=== PATIENT | female | born 1950 | race Caucasian/White ===

== ENCOUNTER 2018-10-30 09:15 | Inpatient (IN) ==
[2018-10-30] MEDS ORDERED: PANTOPRAZOLE SODIUM 40 MG/100 ML PIGGYBACK IV ONE (09:20)
[2018-10-30] MEDS ORDERED: NORMAL SALINE 1,000 ML IV ONE ×2 (09:24→09:25)
--- NOTE | 2018-10-30 09:34 | ERNOTE ---
Medical Problem HPI - General Chief Complaint: Nausea/Vomiting Time Seen by Provider: 10/30/18 09:15 Source: patient, family Exam Limitations: no limitations - Immun/Allergies/Home Medications Immunizations: IMMUNIZATION HX Immunizations Up to Date Yes Allergies/Adverse Reactions: Allergies Sulfa (Sulfonamide Antibiotics) Allergy (Intermediate, Verified 10/18/18 13:24) can't breath Penicillins Allergy (Verified 10/30/18 12:13) Rash Home Medications: HOME MEDICATIONS alprazolam 0.5 mg tablet 0.5 mg PO HS PRN tab 09/28/18 [Last Taken Unknown] famotidine 20 mg tablet 20 mg PO DAILY 09/28/18 [Last Taken Unknown] fluticasone 50 mcg/actuation nasal spray,suspension 1 spray CARRIE BID PRN 09/28/18 [Last Taken Unknown] levothyroxine 75 mcg capsule 75 mcg PO DAILY 09/28/18 [Last Taken Unknown] primidone 250 mg tablet 375 mg PO HS tab 09/28/18 [Last Taken Unknown] hydrocodone 5 mg-acetaminophen 325 mg tablet 1 tab PO DAILY PRN #30 tab 09/29/18 [Last Taken Unknown] fluoxetine 10 mg capsule 10 mg PO DAILY #30 cap 10/11/18 [Last Taken Unknown] - History of Present History Narrative: Patient states that she has had URI symptoms for about two months and has not felt well. Yesterday evening she started to vomit black liquid, per ab out x10, at times bloody, has had black formed stool, has a history of ulcers, had EGD a few years ago She denies any abdominal pain at this point Review of Systems - Review of Systems Constitutional: Present: recent illness, malaise. Absent: fever ENT: Present: nose congestion. Absent: sore throat Respiratory: Present: cough. Absent: shortness of breath Cardiology: Absent: chest pain Gastrointestinal/Abdominal: Present: See HPI, nausea, vomiting. Absent: diarrhea, abdominal pain Genitourinary: Present: no symptoms reported Musculoskeletal: Present: back pain - chronic Neurological: Absent: headache Medical History (Updated 10/18/18 @ 15:54 by Kevin Bonilla MD) Encounter for Medicare annual wellness exam (Acute) Major depressive disorder with current active episode (Acute) BPPV (benign paroxysmal positional vertigo) (Acute) Welcome to Medicare preventive visit (Acute) Chronic lower back pain (Chronic) Etiology of back pain has not been previously evaluated. Anxiety (Chronic) Well controlled with xanax Screening for depression (Chronic) PHQ 9: 15 concerning for Major Depressive Disorder. is at bedside and explains she has been through a lot within the last 2 years, including loss of sibling and father and moving from a different state to [place]. Patient appears she is having a hard time adjusting. Encounter to establish care with new doctor (Acute) Chronic pain Constipation Hypothyroidism Seasonal allergies Seizure disorder Surgical History: Surgical History (Updated 09/28/18 @ 15:42 by Brie Chadwick RN) History of D&C History of section History of tonsillectomy History of tubal ligation Family History: Family History (Updated 09/29/18 @ 09:54 by Brie Chadwick RN) Mother Kidney disease Social History: Preferred Language Hungarian Smoking Status Never smoker Alcohol Use none Drug Use none (Last Updated 10/19/18 @ 12:42 by Kevin Bonilla MD) No Social History Section defined Physical Exam - Physical Exam General Appearance: Present: wd/wn, alert, no apparent distress, other - fatigued Head Exam: Present: normal inspection Eye Exam: Conjunctivae pale: bilateral Ears, Nose, Throat: Present: other - black in mouth Respiratory: Present: no respiratory distress, no accessory muscle use, chest nontender, lungs clear, decreased breath sounds Cardiovascular/Chest: Present: regular rate, rhythm, no murmur Gastrointestinal/Abdominal: Present: normal bowel sounds, nondistended, soft, tenderness - suprapubic Extremity Exam: Present: no edema Neurological Exam: Present: alert, oriented, normal mood/affect Skin Exam: Present: warm/dry, pallor - ! Progress - Results and Orders Patient's Lab Results:: I have reviewed the patient's lab results. - Vital Signs Patient's Vital Signs:: I have reviewed the patient's vital signs. Vital Signs: Vital Signs 10/30/18 09:15 10/30/18 09:22 Temperature 36.2 C Pulse Rate 84 87 Respiratory Rate 18 12 Blood Pressure 133/88 133/88 O2 Sat by Pulse Oximetry 89 L 99 - X-Ray X-Ray #1 X-Ray: abdomen - non specifc bowel gas pattern Interpretation: Reviewed by me - Progress/Reassessment Chief Complaint: Nausea/Vomiting Progress Note-Subjective: 10/30/18 10:[address] Woods, admit to medicine, EGD later today 10/30/18 11:01 discussed with jhony Mendieta to admit to hospital for upper GI bleed Departure Clinical Impression: Upper GI bleed - Departure Disposition: Still a patient Condition: Stable
[2018-10-30] MEDS ORDERED: ONDANSETRON HCL/PF 2 MG/ML VIAL IV ONE (09:37)
[2018-10-30 09:44] LABS: Hematocrit 25.5 % (37.0-47.0); Mean Cell Volume 97.7 fl (78-100); Mean Corpuscular Hemoglobin 30.7 pg (27-31); Mean Corpuscular Hgb Conc 31.4 g/dl (32-36); Mean Platelet Volume 9.3 fl (8-12.5); Neutrophil # 6.9 K/mm3 (1.3-6.0); Platelet Count 362 K/mm3 (150-450); Red Blood Count 2.61 M/mm3 (4.2-5.4); Red Cell Distribution Width 14.7 % (11.5-14.0); White Blood Count 8.8 K/mm3 (4.0-10.5)
[2018-10-30 09:52] LABS: Prothrombin Time (Patient) 12.8 Seconds (9.1-10.7)
[2018-10-30 09:59] LABS: INR 1.31 INR (0.92-1.08); Partial Thrombolplastin Time 26.1 Seconds (24-32)
[2018-10-30 10:04] LABS: ALT 13 U/L (19-67); AST 17 U/L (0-48); Albumin * 2.6 gm/dl (3.4-5.0); Alkaline Phosphatase * 62 U/L (50-170); Anion Gap 13.6 mmol/L (6.8-13.8); BUN/Creatinine Ratio 54.9 (9.0-21.6); Bilirubin, Total 0.1 mg/dL (0.0-1.1); Blood Urea Nitrogen 28 mg/dL (3-23); Ca. Corrected For Albumin 9.5 mg/dL (8.4-10.2); Calcium * 8.7 mg/dL (7.9-10.9); Carbon Dioxide 27.8 mmol/L (24-32.6); Chloride 102 mmol/L (97-106); Glucose * 122 mg/dL (70-110); Potassium 3.4 mmol/L (3.4-4.6); Sodium 140 mmol/L (132-142); Total Protein 5.5 gm/dL (6.2-8.2); Troponin I Less than 0.017 ng/mL (0.00-0.10)
[2018-10-30] MEDS ORDERED: ACETAMINOPHEN 1,000 MG/100 ML BTL IV ONE (11:37)
[2018-10-30] MEDS: NORMAL SALINE 1,000 ML IV ONE ×2 (12:00→18:24)
[2018-10-30] MEDS ORDERED: ONDANSETRON HCL/PF 2 MG/ML VIAL IV PRN (13:10)
[2018-10-30] MEDS ORDERED: HYDROcodone/ACETAMINOPHEN 1 EACH TABLET PO PRN (13:13)
--- NOTE | 2018-10-30 13:20 | HP ---
Chief Complaint - Chief Complaint Date of Service: 10/30/18 Time of Service: 12:41 Chief Complaint: Nausea and coffee-ground emesis for 1 day History of Present Illness: 67-year-old female with past medical history of long-standing GERD, depression associated anxiety, chronic low back pain, and restless leg syndrome, presents to [facility] emergency room with complaints of nausea and coffee-ground emesis for 1 day. Patient states symptoms started last night, after she had a meal at [facility]. Shortly after she arrived home patient states she started feeling hot, followed by coffee-ground emesis. Patient states no nausea symptoms prior vomiting. Patient states she continued to vomit 2 more times with emesis of similar color, followed by bowel movement of stool dark in color. Later on in the evening, patient began to have nausea, which progressively got worse overnight. Associated with constipation for a couple of days. Patient denies any abdominal pain. However in the past she has stated she has had intermittent epigastric pain. Pain is localized however resolves with famotidine and taking a lot of Tums as per patient. Patient denies taking any NSAIDs. Patient denies any other systemic symptoms. On arrival to ER, patient's vital signs were stable. On physical examination patient is pale. Patient evaluated for upper GI bleed. Labs were significant for normocytic anemia, pre-renal acute renal injury, low albumin and mildly elevated INR. Patient started on IV Protonix, maintenance IV fluids and GI consulted. Dr. Woods will complete an upper endoscopy this afternoon and will follow up on results. Discussed labs and management with patient, patient voiced understanding and is agreeable with plan. Medical History (Updated 10/30/18 @ 13:20 by Kevin Bonilla MD) Encounter for Medicare annual wellness exam (Acute) Major depressive disorder with current active episode (Acute) BPPV (benign paroxysmal positional vertigo) (Acute) Welcome to Medicare preventive visit (Acute) Chronic lower back pain (Chronic) Etiology of back pain has not been previously evaluated. Anxiety (Chronic) Well controlled with xanax Screening for depression (Chronic) PHQ 9: 15 concerning for Major Depressive Disorder. is at bedside and explains she has been through a lot within the last 2 years, including loss of sibling and father and moving from a different state to [place]. Patient appears she is having a hard time adjusting. Encounter to establish care with new doctor (Acute) Arm fracture, left Closed fracture of fourth lumbar vertebra Wrist fracture, right Chronic pain Constipation Hypothyroidism Seasonal allergies Seizure disorder Surgical History: Surgical History (Updated 10/30/18 @ 13:20 by Kevin Bonilla MD) History of D&C History of section History of tonsillectomy History of tubal ligation Family History: Family History (Updated 09/29/18 @ 09:54 by Brie Chadwick RN) Mother Kidney disease Social History: Preferred Language Indonesian Smoking Status Never smoker Alcohol Use none Drug Use none (Last Updated 10/19/18 @ 12:42 by Kevin Bonilla MD) No Social History Section defined Review Of Systems (GEN) - Review of Systems Generalized/Overall Review: Present: Fever - Subjective, Malaise, Diaphoresis, Fatigue Respiratory: Present: No Symptoms Reported Cardiac: Present: No Symptoms Reported Abdominal: Present: Nausea, Vomiting, Constipation, Melena Genitourinary: Present: No Symptoms Reported Musculoskeletal: Present: No Symptoms Reported Neurological: Present: No Symptoms Reported Skin: Present: No Symptoms Reported Immunizations: IMMUNIZATION HX Immunizations Up to Date Yes Allergies/Adverse Reactions: Allergies Allergy/AdvReac Type Severity Reaction Status Date / Time Sulfa (Sulfonamide Allergy Intermediate Verified 10/18/18 13:24 Antibiotics) Penicillins Allergy Verified 10/30/18 12:13 Home Medications: HOME MEDICATIONS alprazolam 0.5 mg tablet 0.5 mg PO HS PRN tab 09/28/18 [Last Taken Unknown] famotidine 20 mg tablet 20 mg PO DAILY 09/28/18 [Last Taken Unknown] fluticasone 50 mcg/actuation nasal spray,suspension 1 spray CARRIE BID PRN 09/28/18 [Last Taken Unknown] levothyroxine 75 mcg capsule 75 mcg PO DAILY 09/28/18 [Last Taken Unknown] primidone 250 mg tablet 375 mg PO HS tab 09/28/18 [Last Taken Unknown] hydrocodone 5 mg-acetaminophen 325 mg tablet 1 tab PO DAILY PRN #30 tab 09/29/18 [Last Taken Unknown] fluoxetine 10 mg capsule 10 mg PO DAILY #30 cap 10/11/18 [Last Taken Unknown] Exam - Exam Vital Signs: Vital Signs - Last Taken Temp 36.6 C 10/30/18 11:48 Pulse 97 10/30/18 11:48 Resp 13 10/30/18 11:48 BP 117/64 07/08/19 11:48 Pulse Ox 96 10/30/18 11:48 Constitutional: Present: Alert, Oriented x3, Cooperative, No distress, Lethargic, Elderly Respiratory: Present: chest non-tender, lungs clear, normal breath sounds, no respiratory distress, no accessory muscle use, respiratory distress Cardiovascular/Chest: Present: normal peripheral pulses, regular rate, rhythm, no chest tenderness, no gallop, no JVD, no murmur, edema - 1+, mild nonpitting edema Abdomen: Present: Normal bowel sounds, soft, nontender, nondistended, no rebound tenderness, no hepatospenomegaly. Absent: guarding, rigidity Extremity: Present: normal range of motion, non-tender, normal inspection, no calf tenderness, pedal edema Skin Exam: Present: cool/dry, pallor Appearance: Present: appropriate appearance, appropriate insight Eye contact: Present: cooperative, good eye contact, normal speech Thoughts: Present: normal thought pattern Diagnostic Studies: Abnormal Lab Results 10/30/18 10/30/18 10/30/18 Range/Units 09:33 09:33 09:33 RBC 2.61 L (4.2-5.4) M/mm3 Hgb 8.0 L (12.5-16.0) gm/dL Hct 25.5 L (37.0-47.0) % MCHC 31.4 L (32-36) g/dl RDW 14.7 H (11.5-14.0) % Immature Gran % (Auto) 0.80 H (0.001-0.429) % Immature Gran # (Auto) 0.07 H (0.000-0.0310) K/mm3 Neutrophils % 79.0 H (42-75.0) % Lymphocytes % 10.6 L (20-51) % Neutrophils # 6.9 H (1.3-6.0) K/mm3 Lymphocytes # 0.93 L (1.5-3.5) k/mm3 PT 12.8 H (9.1-10.7) Seconds INR (Anticoag Therapy) 1.31 H (0.92-1.08) INR BUN 28 H (3-23) mg/dL BUN/Creatinine Ratio 54.9 H (9.0-21.6) Random Glucose 122 H (70-110) mg/dL ALT 13 L (19-67) U/L Total Protein 5.5 L (6.2-8.2) gm/dL Albumin 2.6 L (3.4-5.0) gm/dl Gastric Occult Blood Stool Occult Blood 10/30/18 10/30/18 Range/Units 09:45 10:33 RBC (4.2-5.4) M/mm3 Hgb (12.5-16.0) gm/dL Hct (37.0-47.0) % MCHC (32-36) g/dl RDW (11.5-14.0) % Immature Gran % (Auto) (0.001-0.429) % Immature Gran # (Auto) (0.000-0.0310) K/mm3 Neutrophils % (42-75.0) % Lymphocytes % (20-51) % Neutrophils # (1.3-6.0) K/mm3 Lymphocytes # (1.5-3.5) k/mm3 PT (9.1-10.7) Seconds INR (Anticoag Therapy) (0.92-1.08) INR BUN (3-23) mg/dL BUN/Creatinine Ratio (9.0-21.6) Random Glucose (70-110) mg/dL ALT (19-67) U/L Total Protein (6.2-8.2) gm/dL Albumin (3.4-5.0) gm/dl Gastric Occult Blood Positive H Stool Occult Blood Positive H Laboratory Results WBC 8.8 K/mm3 (4.0-10.5) 10/30/18 09:33 RBC 2.61 M/mm3 (4.2-5.4) L 10/30/18 09:33 Hgb 8.0 gm/dL (12.5-16.0) L 10/30/18 09:33 Hct 25.5 % (37.0-47.0) L 10/30/18 09:33 MCV 97.7 fl (78-100) 10/30/18 09:33 MCH 30.7 pg (27-31) 10/30/18 09:33 MCHC 31.4 g/dl (32-36) L 10/30/18 09:33 RDW 14.7 % (11.5-14.0) H 10/30/18 09:33 Plt Count 362 K/mm3 (150-450) 10/30/18 09:33 MPV 9.3 fl (8-12.5) 10/30/18 09:33 Immature Gran % (Auto) 0.80 % (0.001-0.429) H 10/30/18 09:33 Immature Gran # (Auto) 0.07 K/mm3 (0.000-0.0310) H 10/30/18 09:33 79.0 % (42-75.0) H 10/30/18 09:33 10.6 % (20-51) L 10/30/18 09:33 6.4 % (0.0-9) 10/30/18 09:33 2.6 % (0.0-3.0) 10/30/18 09:33 0.6 % (0.0-1.0) 10/30/18 09:33 Nucleated RBC % 0.0 k/mm3 (0-1) 10/30/18 09:33 6.9 K/mm3 (1.3-6.0) H 10/30/18 09:33 0.93 k/mm3 (1.5-3.5) L 10/30/18 09:33 0.6 k/mm3 (0.0-1.0) 10/30/18 09:33 0.2 k/mm3 (0.0-0.7) 10/30/18 09:33 Absolute Basophils 0.1 k/mm3 (0.0-0.1) 10/30/18 09:33 PT 12.8 Seconds (9.1-10.7) H 10/30/18 09:33 INR (Anticoag Therapy) 1.31 INR (0.92-1.08) H 10/30/18 09:33 PTT ([place]) 26.1 Seconds (24-32) 10/30/18 09:33 Sodium 140 mmol/L (132-142) 10/30/18 09:33 140 mmol/L (130-142) 10/30/18 09:33 Potassium 3.4 mmol/L (3.4-4.6) 10/30/18 09:33 Chloride 102 mmol/L (97-106) 10/30/18 09:33 Carbon Dioxide 27.8 mmol/L (24-32.6) 10/30/18 09:33 13.6 mmol/L (6.8-13.8) 10/30/18 09:33 BUN 28 mg/dL (3-23) H 10/30/18 09:33 0.51 mg/dL (0.4-1.4) 10/30/18 09:33 Est GFR (Non-Af Amer) 129 mL/min (60-130) 10/30/18 09:33 54.9 (9.0-21.6) H 10/30/18 09:33 122 mg/dL (70-110) H 10/30/18 09:33 Calcium 8.7 mg/dL (7.9-10.9) 10/30/18 09:33 Calcium Adj for Albumin 9.5 mg/dL (8.4-10.2) 10/30/18 09:33 0.1 mg/dL (0.0-1.1) 10/30/18 09:33 AST 17 U/L (0-48) 10/30/18 09:33 ALT 13 U/L (19-67) L 10/30/18 09:33 62 U/L (50-170) 07 09:33 Less than 0.017 ng/mL (0.00-0.10) 10/30/18 09:33 5.5 gm/dL (6.2-8.2) L 10/30/18 09:33 2.6 gm/dl (3.4-5.0) L 10/30/18 09:33 Gastric Occult Blood Positive H 10/30/18 09:45 Positive H 10/30/18 10:33 Blood Type O Positive 10/30/18 09:33 Antibody Screen Negative 10/30/18 09:33 Assessment/Plan - Narrative Narrative: 1. Coffee-ground emesis and nausea most likely secondary to upper GI bleed -Started on IV Protonix -Start maintenance IV fluids - Patient n.p.o. - No NSAIDs - GI consulted, Dr. Woods: Endoscopy will be completed this afternoon - Appreciate recommendations and feedback - We will follow-up on results 2. Normocytic anemia most likely secondary to upper GI bleed -Iron studies will be completed outpatient -H&H every 6-12 hours depending on symptoms -If patient becomes symptomatic will order type and screen and consider transfusion -Current hemoglobin is 8, if hemoglobin drops less than 7 will consider transfusion 3. Pre-renal acute kidney injury most likely secondary to dehydration -Currently on maintenance IV fluids normal saline -We will recheck CMP in 12 hours -Pending next evaluation we will consider transfusing another 1000 mL of normal saline -We will not keep patient on maintenance IV fluids unless patient is n.p.o. 4. PT/INR INR mildly elevated -INR not greater than 1.5. We will continue to monitor -We will hold all medication that may increase the risk of bleeding 5. DVT prophylaxis -With compression stockings 6. Anxiety associated with depression -Continue home medication of Xanax -Patient started fluoxetine. Will not start medication inpatient 7. Chronic low back pain -Continue home medication of [place] 8. Restless Leg Syndrome - Resume Home medication of primidone Disposition: We will follow-up on recommendation as per GI. Will admit to observation, if patient needs further care will switch to inpatient. - Assessment/Plan (1) Upper GI bleed Problem: Acute (2) CHRISTINE (acute kidney injury) Problem: Acute (3) Normocytic anemia due to blood loss Problem: Acute (4) Chronic lower back pain Problem: Chronic Qualifiers: (5) Anxiety Problem: Chronic
--- NOTE | 2018-10-30 14:17 | ANES ---
Anesthesia Pre Procedure Eval Vitals/Labs: Last Vital Signs Temp 36.8 C 10/30/18 12:15 Pulse 94 10/30/18 13:28 Resp 16 10/30/18 12:15 BP 94/60 10/30/18 12:15 Pulse Ox 92 L 10/30/18 12:15 HOME MEDICATIONS alprazolam 0.5 mg tablet 0.5 mg PO HS PRN tab 09/28/18 [Last Taken Unknown] famotidine 20 mg tablet 20 mg PO DAILY 09/28/18 [Last Taken Unknown] fluticasone 50 mcg/actuation nasal spray,suspension 1 spray CARRIE BID PRN 09/28/18 [Last Taken Unknown] levothyroxine 75 mcg capsule 75 mcg PO DAILY 09/28/18 [Last Taken Unknown] primidone 250 mg tablet 375 mg PO HS tab 09/28/18 [Last Taken Unknown] hydrocodone 5 mg-acetaminophen 325 mg tablet 1 tab PO DAILY PRN #30 tab 09/29/18 [Last Taken Unknown] fluoxetine 10 mg capsule 10 mg PO DAILY #30 cap 10/11/18 [Last Taken Unknown] Allergies/Adverse Reactions: Allergies Allergy/AdvReac Type Severity Reaction Status Date / Time Sulfa (Sulfonamide Allergy Intermediate Verified 10/18/18 13:24 Antibiotics) Penicillins Allergy Verified 10/30/18 12:13 - Planned Procedure Planned Procedure: Upper GI Bleed Medication List Reviewed:: Yes Allergies Verified: Yes Medical History (Updated 10/30/18 @ 13:20 by Kevin Bonilla MD) Encounter for Medicare annual wellness exam (Acute) Major depressive disorder with current active episode (Acute) BPPV (benign paroxysmal positional vertigo) (Acute) Welcome to Medicare preventive visit (Acute) Chronic lower back pain (Chronic) Etiology of back pain has not been previously evaluated. Anxiety (Chronic) Well controlled with xanax Screening for depression (Chronic) PHQ 9: 15 concerning for Major Depressive Disorder. is at bedside and explains she has been through a lot within the last 2 years, including loss of sibling and father and moving from a different state to [place]. Patient appears she is having a hard time adjusting. Encounter to establish care with new doctor (Acute) Arm fracture, left Closed fracture of fourth lumbar vertebra Wrist fracture, right Chronic pain Constipation Hypothyroidism Seasonal allergies Seizure disorder Surgical History (Updated 10/30/18 @ 13:20 by Kevin Bonilla MD) History of D&C History of section History of tonsillectomy History of tubal ligation Family History (Updated 09/29/18 @ 09:54 by Brie Chadwick RN) Mother Kidney disease - Family Anesthesia History Family History:: no untoward family reactions to anesthesia, no familial bleeding tendencies, no family history of clotting disorders, no family history of premature - Airway/Neck/Teeth Within Normal Limits:: Yes Teeth Condition: intact, poor condition Neck Exam: full range of motion Mallampatti Score: 2 Thyromental (T-M) distance: > 6 cm Mandibulo Hyoid distance: > 3 cm - Respiratory Respiratory Physical: lungs clear Smoking Status: Never smoker Sleep Apnea currently treated: No Sleep Apnea by current assessment: No - Cardiovascular Cardiac History: hypertension - Normally high but not currently, hyperlipidemia Tolerate Activity: Fair Heart Sounds: S1 & S2, Regular, Murmur - Anesthesia Assessment and Plan ASA Class: PS, III Anesthesia Type Plan: MAC - anxiety, on benzodiazapine
--- NOTE | 2018-10-30 15:44 | ANES ---
Post Anesthesia Discharge - Transfer of Care Transfer of Care handoff given to nurse: Yes - Discharge to ASU Discharge to ASU-no complications/pt stable: Yes - Comfortable in room 106.
--- NOTE | 2018-10-30 17:21 | CONS ---
- Reason for consultation (1) Upper GI bleed Date of Service: 10/30/18 - Patient was seen at 1300 HPI - General Date of Service: 10/30/18 Source: patient, family, RN/MD, RN notes reviewed Exam Limitations: no limitations - History of Present Illness Initial Comments: She and her moved here about 2-1/2 months ago. There has been a lot going on with having to clean the new house. She has recently seen Dr. Bonilla to establish. She has had issues with major depression and getting out of the house and had not followed through with her baseline lab studies. She states she has been on a "white diet" eating things like cauliflower and other white-colored foods. She had a bowel movement which did not have any color "it had no fiber" and she thought she should eat some normal food. She had [place] food last night. After she went home she began vomiting. Her took a picture of what she vomited it looks like old blood/coffee grounds. She presented to the emergency room today. Her hemoglobin is 8.0. Her past history is remarkable for a similar episode of GI bleeding with dark stools about 2-1/2 years ago where she lived before. They did a colonoscopy first which was normal. Then they did an EGD. Her describes "an ulcer" apparently in the distal esophagus and an ulcer "just before the exit of the stomach". She required 3 units of blood transfusion. She was started on a proton pump inhibitor, however she apparently did not like the "coating on the medication" and so she took famotidine, and "I really have not been taking it l anselmo I should". She states that before she was so pale that she is scared a child. She describes bad daily heartburn with reflux of acid. She takes "multiple" Goody powders daily and also multiple regular aspirin daily. "My old doctor used to continue to record that I took a baby aspirin a day even though I kept telling him it was regular aspirins". She does not take NSAIDs because she does not like the coating on the medication "it feels like it puffs up like a balloon". Timing/Duration: other - Started after supper last night Severity: severe Associated Symptoms: nausea, vomiting, other - Vomited old blood last night Allergies/Adverse Reactions: Allergies Sulfa (Sulfonamide Antibiotics) Allergy (Intermediate, Verified 10/18/18 13:24) can't breath Penicillins Allergy (Verified 10/30/18 12:13) Rash Home Medications: Home Medications Medication Instructions Recorded Last Taken alprazolam 0.5 mg tablet 0.5 mg PO Q6H PRN tab 09/28/18 Unknown famotidine 20 mg tablet 20 mg PO BID 09/28/18 Unknown fluticasone 50 mcg/actuation nasal 1 spray CARRIE BID PRN 09/28/18 Unknown spray,suspension levothyroxine 75 mcg capsule 75 mcg PO DAILY 09/28/18 Unknown primidone 250 mg tablet 375 mg PO HS tab 09/28/18 Unknown hydrocodone 5 mg-acetaminophen 325 1 tab PO DAILY PRN #30 tab 09/29/18 Unknown mg tablet fluoxetine 10 mg capsule 10 mg PO DAILY #30 cap 10/11/18 Unknown Calcium Carbonate [Tums] 500 mg PO TID PRN 10/30/18 Unknown Medications - Medications Current Medications: Current Medications Sodium Chloride (Sodium Chloride 0.9%) 1,000 mls @ 125 mls/hr IV .Q8H ONE Stop: 10/30/18 19:35 Last Admin: 10/30/18 12:00 Dose: 125 mls/hr Documented by: Physical Examination - Exam Narrative: She is laying with her eyes closed. She is white as a sheet. Vital Signs: Vital Signs - Last Taken Temp 36.8 C 10/30/18 12:15 Pulse 106 10/30/18 12:15 Resp 16 10/30/18 12:15 BP 94/60 10/30/18 12:15 Pulse Ox 92 10/30/18 12:15 O2 Oxygen Delivery Method Room Air Constitutional: Present: Alert, Oriented x3, Cooperative, No distress, Other - Very flat affect ENT Exam: Present: normal ENT inspection, other - Very pale mucous membranes, Cheilosis at the corners of the mouth Eye Exam: bilateral eye: normal inspection Neck: Present: normal inspection Respiratory: Present: no respiratory distress, no accessory muscle use Cardiovascular/Chest: Present: regular rate, rhythm Abdomen: Present: soft, nontender /Rectal: Present: Exam deferred Extremity: Present: normal range of motion, no pedal edema, no calf tenderness Skin Exam: Present: pallor - Profound pallor 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: 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 as tested, no motor/sensory deficits Appearance: Present: no memory impairment Eye contact: Present: cooperative, good eye contact, other - Very slow speech Thoughts: Present: other - Flat affect - Results and Findings: Lab/Microbiology results last 24 hrs: Abnormal/Pending Laboratory Last 24 HRS 10/30/18 10/30/18 10/30/18 10:33 09:45 09:33 RBC Hgb Hct MCHC RDW Immature Gran % (Auto) Immature Gran # (Auto) Neutrophils % Lymphocytes % Neutrophils # Lymphocytes # PT INR (Anticoag Therapy) BUN 28 H BUN/Creatinine Ratio 54.9 H Random Glucose 122 H ALT 13 L Total Protein 5.5 L Albumin 2.6 L Gastric Occult Blood Positive H Stool Occult Blood Positive H 10/30/18 10/30/18 09:33 09:33 RBC 2.61 L Hgb 8.0 L Hct 25.5 L MCHC 31.4 L RDW 14.7 H Immature Gran % (Auto) 0.80 H Immature Gran # (Auto) 0.07 H Neutrophils % 79.0 H Lymphocytes % 10.6 L Neutrophils # 6.9 H Lymphocytes # 0.93 L PT 12.8 H INR (Anticoag Therapy) 1.31 H BUN BUN/Creatinine Ratio Random Glucose ALT Total Protein Albumin Gastric Occult Blood Stool Occult Blood - Assessments/Findings (1) Upper GI bleed Diagnosis(s): Her history is compatible with an upper GI bleed most likely related to the use of aspirin-containing products. This sounds very similar to her previous history. It will be important to proceed with an expeditious EGD to determine the site of bleeding--- and tailor therapy appropriately. Biopsies will be done for H. pylori and pathology. A pamphlet on GERD was reviewed with her and her with annotations and given to them. I explained the need for EGD, and detailed the risks and possible complications of that procedure. After interactive discussion their questions were answered to their apparent satisfaction and she has given informed consent for EGD with biopsies. Problem: Acute
--- NOTE | 2018-10-30 17:46 | OR ---
Operative Report - Dictated Report Narrative: Operative Report Date of operation: 10/30/2018 Preoperative diagnosis: Upper GI bleeding, anemia Postoperative diagnosis: Esophagitis with linear ulcer, hiatal hernia, gastropathy, clot on a prepyloric ulcer Operation: Esophagogastroscopy with biopsies Surgeon: Dr Woods Anesthesia: HENRY Cardenas CRNA Indications for procedure: The patient is a 67-year-old female who presented to the emergency room after vomiting blood and coffee-ground material. She has a past history of upper GI bleeding with what sounds like a prepyloric ulcer. She required 3 units of transfusion. She takes multiple aspirin containing products daily. Findings: Esophagitis with linear ulceration above a scarred GE junction. Hiatal hernia. Gastropathy. Clot on an apparent prepyloric ulcer. Duodenum not visualized Narrative of procedure: The patient was identified preoperatively, and prior to the administration of anesthetic a multidisciplinary timeout was observed With the patient in the recumbent position, a bite-block was placed, intravenous sedation administered, and the patient's eyes covered with a towel. The flexible fiberoptic gastroscope was advanced into the posterior pharynx which appeared normal. The supraglottic larynx appeared normal with exception of m ild arytenoid edema. The cords appeared normal, moved well, and opposed in the midline. The scope was advanced under direct vision into the proximal esophagus which contained old blood which was carefully suctioned. There were multiple ringlike ridges in the esophagus. The esophagus appeared freely distensible. There were no varices. The esophageal mucosa appeared intact down to the gastroesophageal junction where there was marked scarring. There was a single linear area of esophagitis and 2 mm ulcer. There were no varices, no Naty- Salvador tear, and no evidence of recent GE junction bleeding. The GE junction appeared normally distensible. There was a small sliding hiatal hernia. The scope was advanced into the stomach proper which was insufflated with air. The stomach was full of old blood which was carefully suctioned completely prior to continuing the exam. The gastric mucosa was erythematous. A retroflexed view of the gastric fundus confirmed the hiatal hernia but revealed no additional lesions or bleeding sites. The scope was redirected toward the pylorus. Just before the pyloric opening was a clot which occluded the pylorus itself. This could be approached and with irrigation exudate was identified indicating an ulcer on the gastric side of the pylorus. There was no active bleeding. It was felt unsafe to advance the scope into the duodenal bulb for fear of dislodging the established clot. Field Operations Farm Manager biopsies of gastric mucosa were obtained for CLOtest and pathology. The biopsy sites were seen to be hemostatic. The insufflated air was removed and the stomach suctioned clean. The scope was then slowly withdrawn through the hiatal hernia, GE junction, and esophagus with confirmation of the previously noted findings. Photographs were obtained. The patient tolerated the anesthetic and procedure well without complication and was transferred back to her regular room awake and in stable condition. I reviewed the findings and photographs with the patient and her . I explained the findings of clotted ulcer, which they say sounds like what happened last time. I explained that biopsies have been done for H. pylori and pathology and will help guide treatment. I confirmed her heavy aspirin- containing product use. RECOMMENDATION: She should be kept at n.p.o. status with only ice chips and essential p.o. medications. Serial CBCs have been ordered (next at midnight). She has received a single dose of Protonix and this should be continued every 24 hours. I discussed the findings (photos) and recommendation for the patient's care with Dr. Huang who is covering for Dr. Bonilla Reviewed and electronically signed
--- NOTE | 2018-10-30 18:18 | ANES ---
Post Anesthesia Assessment - Vital Signs Vitals: Last Vital Signs Temp 37.3 C 10/30/18 17:32 Pulse 101 H 10/30/18 17:32 Resp 14 10/30/18 17:32 BP 132/71 10/30/18 17:32 Pulse Ox 97 10/30/18 17:33 Airway Patency: Normal - Mental Status Level Of Consciousness: Awake, Alert, Appropriate - Pain Level Pain Score: 0 - N/V Assessment Nausea/Vomiting Presence: None Dehydration:: No
[2018-10-30] MEDS ORDERED: PRIMIDONE 250 MG TABLET PO SCH (21:00)
[2018-10-30] MEDS: ALPRAZolam 0.5 MG TABLET PO PRN (22:57)
[2018-10-31 05:25] LABS: Mean Cell Volume 99.5 fl (78-100); Mean Corpuscular Hemoglobin 30.2 pg (27-31); Mean Corpuscular Hgb Conc 30.3 g/dl (32-36); Mean Platelet Volume 8.9 fl (8-12.5); Neutrophil # 4.1 K/mm3 (1.3-6.0); Neutrophil % 75.9 % (42-75.0); Platelet Count 301 K/mm3 (150-450); Red Blood Count 2.12 M/mm3 (4.2-5.4); Red Cell Distribution Width 14.7 % (11.5-14.0); White Blood Count 5.4 K/mm3 (4.0-10.5)
[2018-10-31 05:38] LABS: Hematocrit 21.1 % (37.0-47.0); Hemoglobin 6.4 gm/dL (12.5-16.0)
[2018-10-31 05:47] LABS: Albumin * 2.7 gm/dl (3.4-5.0); Anion Gap 13.6 mmol/L (6.8-13.8); BUN/Creatinine Ratio 25.6 (9.0-21.6); Bilirubin, Total 0.2 mg/dL (0.0-1.1); Calcium * 7.3 mg/dL (7.9-10.9); Carbon Dioxide 24.3 mmol/L (24-32.6); Potassium 2.9 mmol/L (3.4-4.6); Total Protein 5.4 gm/dL (6.2-8.2)
[2018-10-31 07:28] LABS: Prothrombin Time (Patient) 12.1 Seconds (9.1-10.7)
[2018-10-31] MEDS ORDERED: ALPRAZolam 0.5 MG TABLET PO ONE (07:30)
[2018-10-31 07:31] LABS: INR 1.23 INR (0.92-1.08); Partial Thrombolplastin Time 25.9 Seconds (24-32)
[2018-10-31] MEDS ORDERED: PANTOPRAZOLE SODIUM 40 MG in NORMAL SALINE 100 ML IV ONE (07:36)
--- NOTE | 2018-10-31 08:15 | PN ---
Subjective - Date and Time Seen Date: 10/31/18 Time: 07:56 Subjective Narrative: Patient seen and evaluated this morning. Patient is very uncomfortable due to the the bed, she would like to go home after the first transfusion of blood. Patient is complaining of leg pain secondary to restless leg syndrome, she has not received her medication yet. Patient states she does not like being alone and does not like being in the hospital. She is teary and also concerned that she may in the hospital because her mother also in the hospital. Reassured patient that we are treating her accordingly and want to make sure by the time we discharge her, that she is well and stable to go home and also prevent her from bouncing back into the hospital. Patient is very anxious and restless. Discussed scope results and management with patient. Patient cur rently not agreeable with the plan however will continue to encourage her to be compliant until she is stable to be discharged. No fever or chills. No bowel movement this morning however passing flatus. No problems urination. Currently n.p.o. ice chips only. Ordered Xanax 0.5 mg x 1 to be administered, which was administered in my present, patient eventually calmed down and fell asleep. Objective Objective Narrative: Vital signs reviewed patient has been tachycardic and hypertensive overnight. - Review of Systems Generalized/Overall Review: Reports: Fatigue. Denies: Chills, Fever Respiratory: Denies: Cough, Shortness of Breath, Wheezing Cardiac: Denies: Chest Pain, Palpitations Abdominal: Reports: Abdominal Pain. Denies: Nausea, Vomiting Genitourinary Symptoms: Reports: Frequency Musculoskeletal Complaints: Reports: Muscle Pain Neurological: Reports: Weakness Skin: Reports: No Symptoms Reported Endocrine: Reports: No Symptoms Reported - Vitals Vitals: Last Vital Signs Temp 36.8 C 10/31/18 07:22 Pulse 105 H 10/31/18 07:37 Resp 16 10/31/18 07:37 BP 157/95 H 10/31/18 07:37 Pulse Ox 96 10/31/18 07:37 - Abnormal Lab Findings Abnormal Lab Findings: Abnormal Lab Results 10/30/18 10/30/18 10/30/18 Range/Units 09:33 09:33 09:33 RBC 2.61 L (4.2-5.4) M/mm3 Hgb 8.0 L (12.5-16.0) gm/dL Hct 25.5 L (37.0-47.0) % MCHC 31.4 L (32-36) g/dl RDW 14.7 H (11.5-14.0) % Immature Gran % (Auto) 0.80 H (0.001-0.429) % Immature Gran # (Auto) 0.07 H (0.000-0.0310) K/mm3 Neutrophils % 79.0 H (42-75.0) % Lymphocytes % 10.6 L (20-51) % Eosinophils % (0.0-3.0) % Neutrophils # 6.9 H (1.3-6.0) K/mm3 Lymphocytes # 0.93 L (1.5-3.5) k/mm3 PT 12.8 H (9.1-10.7) Seconds INR (Anticoag Therapy) 1.31 H (0.92-1.08) INR Potassium (3.4-4.6) mmol/L BUN 28 H (3-23) mg/dL Creatinine (0.4-1.4) mg/dL Est GFR (Non-Af Amer) (60-130) mL/min BUN/Creatinine Ratio 54.9 H (9.0-21.6) Random Glucose 122 H (70-110) mg/dL Calcium (7.9-10.9) mg/dL Calcium Adj for Albumin (8.4-10.2) mg/dL ALT 13 L (19-67) U/L Total Protein 5.5 L (6.2-8.2) gm/dL Albumin 2.6 L (3.4-5.0) gm/dl Gastric Occult Blood Stool Occult Blood Crossmatch 10/30/18 10/30/18 10/30/18 Range/Units 09:33 09:45 10:33 RBC (4.2-5.4) M/mm3 Hgb (12.5-16.0) gm/dL Hct (37.0-47.0) % MCHC (32-36) g/dl RDW (11.5-14.0) % Immature Gran % (Auto) (0.001-0.429) % Immature Gran # (Auto) (0.000-0.0310) K/mm3 Neutrophils % (42-75.0) % Lymphocytes % (20-51) % Eosinophils % (0.0-3.0) % Neutrophils # (1.3-6.0) K/mm3 Lymphocytes # (1.5-3.5) k/mm3 PT (9.1-10.7) Seconds INR (Anticoag Therapy) (0.92-1.08) INR Potassium (3.4-4.6) mmol/L BUN (3-23) mg/dL Creatinine (0.4-1.4) mg/dL Est GFR (Non-Af Amer) (60-130) mL/min BUN/Creatinine Ratio (9.0-21.6) Random Glucose (70-110) mg/dL Calcium (7.9-10.9) mg/dL Calcium Adj for Albumin (8.4-10.2) mg/dL ALT (19-67) U/L Total Protein (6.2-8.2) gm/dL Albumin (3.4-5.0) gm/dl Gastric Occult Blood Positive H Stool Occult Blood Positive H Crossmatch See Detail 10/31/18 10/31/18 10/31/18 Range/Units 05:00 05:15 05:15 RBC 2.12 L (4.2-5.4) M/mm3 Hgb 6.4 L* (12.5-16.0) gm/dL Hct 21.1 L* (37.0-47.0) % MCHC 30.3 L (32-36) g/dl RDW 14.7 H (11.5-14.0) % Immature Gran % (Auto) 0.90 H (0.001-0.429) % Immature Gran # (Auto) 0.05 H (0.000-0.0310) K/mm3 Neutrophils % 75.9 H (42-75.0) % Lymphocytes % 10.6 L (20-51) % Eosinophils % 4.1 H (0.0-3.0) % Neutrophils # (1.3-6.0) K/mm3 Lymphocytes # 0.57 L (1.5-3.5) k/mm3 PT 12.1 H (9.1-10.7) Seconds INR (Anticoag Therapy) 1.23 H (0.92-1.08) INR Potassium 2.9 L (3.4-4.6) mmol/L BUN (3-23) mg/dL Creatinine 0.39 L (0.4-1.4) mg/dL Est GFR (Non-Af Amer) 175 H D (60-130) mL/min BUN/Creatinine Ratio 25.6 H (9.0-21.6) Random Glucose (70-110) mg/dL Calcium 7.3 L (7.9-10.9) mg/dL Calcium Adj for Albumin 8.0 L (8.4-10.2) mg/dL ALT 14 L (19-67) U/L Total Protein 5.4 L (6.2-8.2) gm/dL Albumin 2.7 L (3.4-5.0) gm/dl Gastric Occult Blood Stool Occult Blood Crossmatch - Exam Constitutional: Present: Alert, Oriented x3, Mild distress Respiratory: Present: chest non-tender, lungs clear, normal breath sounds, no respiratory distress, no accessory muscle use, respiratory distress Cardiovascular/Chest: Present: normal peripheral pulses, regular rate, rhythm, no chest tenderness, no edema, no gallop, no JVD, no murmur, tachycardia Abdomen: Present: Normal bowel sounds, soft, tender - Epigastric region. Absent: nondistended, no rebound tenderness, guarding, rigidity Extremity: Present: normal range of motion, non-tender, normal inspection, no p edal edema, no calf tenderness, normal capillary refill, leg cramps Skin Exam: Present: normal color, warm/dry, no cyanosis Appearance: Present: appropriate appearance, denies illness, impaired insight Eye contact: Present: avoids eye contact, uncooperative Thoughts: Present: normal thought pattern Assessment/Plan Plan Narrative: 1. Upper GI bleed -Status post upper GI endoscopy, note reviewed appreciate recommendation and feedback -We will continue omeprazole IV 40 mg daily - we will continue n.p.o. status with ice chips only -No NSAIDs to be administered 2. Normocytic anemia due to acute blood loss -Initial hemoglobin at admit was 8 -Overnight hemoglobin dropped to 6.4 -Vital signs tachycardia and hypertension are consistent with compensation secondary to acute blood loss -Screen and type ordered overnight by Dr. Huang and 1 unit of blood ordered -Transfusion started at 7 AM -Lasix 20 mg IV to be administered after transfusion -CBC to be obtained 6 hours after completion of transfusion -Pending next CBC will determine with the patient will need an additional units of blood 3. Prerenal acute kidney injury most likely secondary to dehydration -BUN/creatinine ratio 25.6, which is an improvement from admit which was greater than 50 -Once transfusion is complete and Lasix has been advanced administered, will start maintenance IV fluids normal saline at 125 mL/h -We will not administer boluses secondary to concerns of fluid overload, especially status post transfusion -We will continue to monitor renal function closely -CMP ordered every 12 hours. 4. Hypokalemia most likely secondary to blood loss - Ordered Magnesium level, pending results, will either adminsiter MgSO4 prior to administering Potassium -We will replace as needed via IV or p.o. -We will monitor potassium with CMP 5 Hypoalbuminemia -This most likely may be secondary to dilutional -Currently no concern for third spacing -Only consider albumin transfusion if patient has fluid overloading and third spacing -We will continue to monitor 6. PT/INR mildly elevated on admission -Labs pending from this morning -We will continue to monitor 7. Anxiety -Continue with Xanax 0.5 mg every 6 hours as needed 8. Major depressive disorder -Patient refused to take Prozac 9. Restless leg syndrome -Continue with home medication of Requip as prescribed 10. Chronic low back pain -Continue with home medication of [place] 5/325 mg by mouth every 12 hours as needed 11. DVT prophylaxis -Continue with SCDs -We will not administer any blood thinners -Currently patient is not compliant SCDs, states makes her leg painful -Encourage patient to get up and sit on the couch and move around to prevent DVTs Disposition: -We will continue transfusing with a goal of hemoglobin greater than 9 -We will monitor for transfusion reaction -Will continue to administer maintenance IV fluids between transfusions to improve hydration status and renal function -We will continue n.p.o. status until further evaluation -GI on board: Dr. Woods, appreciate recommendations of feedback -Currently in observation, if patient is complaint with treatment i anticipate discharge within 48 hours, and patient status will be changed to Inpatient. - Problems/Diagnosis (1) Upper GI bleed Problem: Acute (2) Normocytic anemia due to blood loss Problem: Acute (3) CHRISTINE (acute kidney injury) Problem: Acute (4) Hypoalbuminemia Problem: Acute (5) Hypokalemia Problem: Acute (6) Chronic lower back pain Problem: Chronic Qualifiers: (7) Anxiety Problem: Chronic (8) Restless leg syndrome Problem: Chronic (9) Major depressive disorder with current active episode Problem: Acute Qualifiers: Major depression recurrence: single episode Major depression episode severity: severe Psychotic features: without psychotic features Qualified Code(s): F32.2 - Major depressive disorder, single episode, severe without psychotic features
[2018-10-31] MEDS: LEVOTHYROXINE SODIUM 75 MCG TABLET PO SCH (09:01)
[2018-10-31] MEDS ORDERED: FUROSEMIDE 10 MG/ML VIAL IV ONE (11:00)
[2018-10-31] MEDS ORDERED: NORMAL SALINE 1,000 ML IV ONE ×2 (12:00→15:03)
[2018-10-31 12:02] LABS: Hematocrit 31.2 % (37.0-47.0); Hemoglobin 9.9 gm/dL (12.5-16.0)
[2018-10-31] MEDS ORDERED: POTASSIUM CHLORIDE 40 MEQ/15 ML LIQUID PO ONE (12:40)
[2018-10-31 14:59] LABS: Hematocrit 28.6 % (37.0-47.0); Hemoglobin 9.1 gm/dL (12.5-16.0); Mean Corpuscular Hemoglobin 31.5 pg (27-31); Mean Corpuscular Hgb Conc 31.8 g/dl (32-36); Mean Platelet Volume 8.5 fl (8-12.5); Neutrophil # 5.3 K/mm3 (1.3-6.0); Neutrophil % 80.6 % (42-75.0); Platelet Count 290 K/mm3 (150-450); Red Blood Count 2.89 M/mm3 (4.2-5.4); Red Cell Distribution Width 14.4 % (11.5-14.0); White Blood Count 6.6 K/mm3 (4.0-10.5)
[2018-10-31 15:18] LABS: Albumin * 2.9 gm/dl (3.4-5.0); Anion Gap 13.9 mmol/L (6.8-13.8); BUN/Creatinine Ratio 22.7 (9.0-21.6); Bilirubin, Total 0.3 mg/dL (0.0-1.1); Ca. Corrected For Albumin 8.2 mg/dL (8.4-10.2); Calcium * 7.6 mg/dL (7.9-10.9); Carbon Dioxide 25.8 mmol/L (24-32.6); Potassium 3.7 mmol/L (3.4-4.6); Total Protein 5.8 gm/dL (6.2-8.2)
[2018-10-31] MEDS ORDERED: ALPRAZolam 0.5 MG TABLET PO PRN (16:32)
[2018-10-31] MEDS ORDERED: HYDROcodone/ACETAMINOPHEN 1 EACH TABLET PO PRN (16:32)
--- NOTE | 2018-10-31 16:39 | PN ---
Kirill Note - Interim Date: 10/31/18 Time: 16:34 Narrative: 10/31/18 16:34 Discussed with patient in regards to plan and management. Expect to stay inpatient for the next 24 to 48 hours, in order to monitor hemoglobin, prerenal acute injury, advance her diet as tolerated. Changed medications to [place] every 6 hours as needed, Xanax 0.5 mg at bedtime and 0.5 mg as needed during the day and primidone 1 pill in the evening and half a tablet in the morning. Patient will continue to be n.p.o. with ice chips, will continue maintenance IV fluids at 50 mls per hour until diet is started. Awaiting recommendations from Dr. Woods, in regards to advancing her diet. Discussed plan with Dr. Kingsley and is agreeable with management. Also discussed management with skilled nursing case manager Veronica Ceballos. We will see patient in the morning.
[2018-10-31 17:57] LABS: Hematocrit 28.1 % (37.0-47.0); Hemoglobin 8.9 gm/dL (12.5-16.0); Mean Cell Volume 98.9 fl (78-100); Mean Corpuscular Hemoglobin 31.3 pg (27-31); Mean Corpuscular Hgb Conc 31.7 g/dl (32-36); Mean Platelet Volume 8.7 fl (8-12.5); Neutrophil # 5.1 K/mm3 (1.3-6.0); Platelet Count 306 K/mm3 (150-450); Red Blood Count 2.84 M/mm3 (4.2-5.4); Red Cell Distribution Width 14.5 % (11.5-14.0); White Blood Count 6.4 K/mm3 (4.0-10.5)
[2018-10-31] MEDS: ALPRAZolam 0.5 MG TABLET PO PRN (19:42)
[2018-10-31] MEDS ORDERED: PRIMIDONE 250 MG TABLET PO SCH (21:00)
[2018-10-31 22:14] LABS: Hematocrit 24.7 % (37.0-47.0)
[2018-10-31 22:16] LABS: Hemoglobin 7.7 gm/dL (12.5-16.0)
[2018-11-01 02:10] LABS: Hemoglobin 6.6 gm/dL (12.5-16.0)
[2018-11-01 06:55] LABS: Mean Cell Volume 96.2 fl (78-100); Mean Corpuscular Hemoglobin 31.6 pg (27-31); Mean Corpuscular Hgb Conc 32.9 g/dl (32-36); Mean Platelet Volume 9.1 fl (8-12.5); Neutrophil # 7.4 K/mm3 (1.3-6.0); Neutrophil % 82.4 % (42-75.0); Platelet Count 262 K/mm3 (150-450); Red Blood Count 2.37 M/mm3 (4.2-5.4); Red Cell Distribution Width 13.9 % (11.5-14.0)
[2018-11-01 06:59] LABS: Hemoglobin 7.5 gm/dL (12.5-16.0)
[2018-11-01 07:00] LABS: Hematocrit 22.8 % (37.0-47.0)
[2018-11-01 07:01] LABS: Albumin * 2.2 gm/dl (3.4-5.0); Anion Gap 16.5 mmol/L (6.8-13.8); BUN/Creatinine Ratio 57.9 (9.0-21.6); Bilirubin, Total 0.3 mg/dL (0.0-1.1); Ca. Corrected For Albumin 8.2 mg/dL (8.4-10.2); Calcium * 7.1 mg/dL (7.9-10.9); Carbon Dioxide 21.1 mmol/L (24-32.6); Potassium 3.6 mmol/L (3.4-4.6); Total Protein 4.4 gm/dL (6.2-8.2)
[2018-11-01] MEDS: LEVOTHYROXINE SODIUM 75 MCG TABLET PO SCH (07:35)
[2018-11-01] MEDS ORDERED: NORMAL SALINE 1,000 ML IV PRN ×2 (08:08→10:06)
[2018-11-01 08:23] LABS: Mean Cell Volume 96.9 fl (78-100); Mean Corpuscular Hemoglobin 31.6 pg (27-31); Mean Corpuscular Hgb Conc 32.6 g/dl (32-36); Mean Platelet Volume 9.1 fl (8-12.5); NRBC# 0.1 k/mm3 (0-1); Neutrophil # 9.2 K/mm3 (1.3-6.0); Neutrophil % 76.8 % (42-75.0); Platelet Count 299 K/mm3 (150-450); Red Blood Count 2.28 M/mm3 (4.2-5.4); Red Cell Distribution Width 14.2 % (11.5-14.0)
[2018-11-01 08:37] LABS: Albumin * 2.1 gm/dl (3.4-5.0); Anion Gap 13.6 mmol/L (6.8-13.8); BUN/Creatinine Ratio 48.8 (9.0-21.6); Bilirubin, Total 0.2 mg/dL (0.0-1.1); Ca. Corrected For Albumin 8.7 mg/dL (8.4-10.2); Calcium * 7.5 mg/dL (7.9-10.9); Carbon Dioxide 23.4 mmol/L (24-32.6); Total Protein 4.2 gm/dL (6.2-8.2); Troponin I 0.034 ng/mL (0.00-0.10)
[2018-11-01 08:38] LABS: Hematocrit 22.1 % (37.0-47.0); Hemoglobin 7.2 gm/dL (12.5-16.0)
--- NOTE | 2018-11-01 08:40 | PN ---
Kirill Note - Interim Date: 11/01/18 Time: 08:29 Narrative: 11/01/18 08:29 "Doctor Rapid" called this morning for patient having a syncopal episode. She was getting up to go to the bathroom, but was not making sense, and slumped forward. Her nurse could not find a pulse and she appeared to not be breathing. One compression was given, and she woke up and started moving. EKG showed sinus tachycardia, repeat labs drawn and are pending. One L NS bolus was started, and additional U of PRBC ordered. PE: Const: Able to answer questions, but does not open her eyes HEENT: Dry mucous membranes CV: tachycardic, no murmur heard, no lower extremity edema Abdomen: Soft, nontender A/P: Syncopal episode: May have been vasovagal. CBC, CMP, troponin pending. Her Hgb was 7.7 this morning after receiving 1 U PRBC, but she may be actively bleeding. Will transfer her to the SICU. Acute GI bleed: Upper endoscopy on 10/30 showed a clot on a possible prepyloric ulcer. Hgb of 6.6 overnight, 7.7 this morning after one unit. Hgb drawn after her syncopal episode was 7.2, so she is still actively bleeding. Will give an additional unit PRBC and discuss treatment plan with Dr. Woods. Continue protonix.
[2018-11-01] MEDS ORDERED: PRIMIDONE 250 MG TABLET PO SCH (09:00)
[2018-11-01] MEDS ORDERED: PANTOPRAZOLE SODIUM 40 MG in NORMAL SALINE 100 ML IV SCH ×2 (09:00→09:15)
--- NOTE | 2018-11-01 09:09 | DS ---
Transfer Discharge Summary - Course Description of Stay: Patient with PMHx of depression, RLS, chronic low back pain presented to the ED after having multiple episodes of vomiting black emesis and dark stools. She reports using Goody powders multiple times a day, occasional aspirin, and occasional BC, indicating significant NSAID use. Admission labs showed a hemoglobin of 8.0 on 10/30. She underwent EGD, which showed "Postoperative diagnosis: Esophagitis with linear ulcer, hiatal hernia, gastropathy, clot on a prepyloric ulcer." She required a PRBC transfusion early on 10/31 for Hgb of 6.4. 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 Around 8:00 the morning of 11/01, she got up to have a BM on the commode and slumped over. Her nurse could not find a pulse and she did not appear to be breathing, and one compression was done, which woke the patient. Rapid response called, multiple l abs and EKG ordered, along with 2 U PRBC and a L NS. Her BP was 90/65 during this episode and her heart rate was in the 120's, both which improved after the saline bolus was started. Her hemoglobin was then 7.2 at the time of this episode. Her plan was discussed with her general surgeon, who has significant concerns about her exsanguinating with repeat EGD. Transfer process initiated, and she was accepted at [facility]. Procedures Performed: see notes below - EGD - Results and Findings Results and Findings: Laboratory Results - last 24 hr 10/30/18 10/31/18 10/31/18 09:33 11:55 14:55 WBC 6.6 D RBC 2.89 L Hgb 9.9 L 9.1 L Hct 31.2 L 28.6 L MCV 99.0 MCH 31.5 H MCHC 31.8 L RDW 14.4 H Plt Count 290 MPV 8.5 Immature Gran % (Auto) 1.10 H Immature Gran # (Auto) 0.07 H Neutrophils % 80.6 H Lymphocytes % 6.7 L Monocytes % 6.3 Eosinophils % 4.4 H Basophils % 0.9 Nucleated RBC % 0.0 Neutrophils # 5.3 Lymphocytes # 0.44 L Monocytes # 0.4 Eosinophils # 0.3 Absolute Basophils 0.1 pCO2 pO2 HCO3 Total CO2 Base Excess ABG pH ABG O2 Sat (Measured) Sodium Plasma Sodium Potassium Chloride Carbon Dioxide Anion Gap BUN Creatinine Est GFR (Non-Af Amer) BUN/Creatinine Ratio Random Glucose Calcium Calcium Adj for Albumin Total Bilirubin AST ALT Alkaline Phosphatase Troponin I Total Protein Albumin Blood Type O Positive Antibody Screen Negative Crossmatch See Detail 10/31/18 10/31/18 10/31/18 14:55 17:55 21:49 WBC 6.4 RBC 2.84 L Hgb 8.9 L 7.7 L* Hct 28.1 L 24.7 L MCV 98.9 MCH 31.3 H MCHC 31.7 L RDW 14.5 H Plt Count 306 MPV 8.7 Immature Gran % (Auto) 0.60 H Immature Gran # (Auto) 0.04 H Neutrophils % 80.0 H Lymphocytes % 7.5 L Monocytes % 7.5 Eosinophils % 3.8 H Basophils % 0.6 Nucleated RBC % 0.0 Neutrophils # 5.1 Lymphocytes # 0.48 L Monocytes # 0.5 Eosinophils # 0.2 Absolute Basophils 0.0 pCO2 pO2 HCO3 Total CO2 Base Excess ABG pH ABG O2 Sat (Measured) Sodium 141 Plasma Sodium 141 Potassium 3.7 D Chloride 105 Carbon Dioxide 25.8 Anion Gap 13.9 H BUN 10 Creatinine 0.44 Est GFR (Non-Af Amer) 153 H BUN/Creatinine Ratio 22.7 H Random Glucose 92 Calcium 7.6 L Calcium Adj for Albumin 8.2 L Total Bilirubin 0.3 AST 26 ALT 18 L Alkaline Phosphatase 68 Troponin I Total Protein 5.8 L Albumin 2.9 L Blood Type Antibody Screen Crossmatch 11/01/18 11/01/18 11/01/18 02:05 06:40 06:40 WBC 9.0 D RBC 2.37 L Hgb 6.6 L* 7.5 L* Hct 21.0 L* 22.8 L* MCV 96.2 MCH 31.6 H MCHC 32.9 RDW 13.9 Plt Count 262 MPV 9.1 Immature Gran % (Auto) 1.00 H Immature Gran # (Auto) 0.09 H Neutrophils % 82.4 H Lymphocytes % 7.2 L Monocytes % 7.7 Eosinophils % 1.1 Basophils % 0.6 Nucleated RBC % 0.0 Neutrophils # 7.4 H Lymphocytes # 0.65 L Monocytes # 0.7 Eosinophils # 0.1 Absolute Basophils 0.1 pCO2 pO2 HCO3 Total CO2 Base Excess ABG pH ABG O2 Sat (Measured) Sodium 143 H Plasma Sodium 143 H Potassium 3.6 Chloride 109 H Carbon Dioxide 21.1 L Anion Gap 16.5 H BUN 22 D Creatinine 0.38 L Est GFR (Non-Af Amer) 181 H BUN/Creatinine Ratio 57.9 H Random Glucose 96 Calcium 7.1 L Calcium Adj for Albumin 8.2 L Total Bilirubin 0.3 AST 44 ALT 37 Alkaline Phosphatase 57 Troponin I Total Protein 4.4 L Albumin 2.2 L Blood Type Antibody Screen Crossmatch 11/01/18 11/01/18 11/01/18 08:15 08:15 08:20 WBC 12.0 H D RBC 2.28 L Hgb 7.2 L* Hct 22.1 L* MCV 96.9 MCH 31.6 H MCHC 32.6 RDW 14.2 H Plt Count 299 MPV 9.1 Immature Gran % (Auto) 1.80 H Immature Gran # (Auto) 0.22 H Neutrophils % 76.8 H Lymphocytes % 14.3 L Monocytes % 6.0 Eosinophils % 0.7 Basophils % 0.4 Nucleated RBC % 0.1 Neutrophils # 9.2 H Lymphocytes # 1.71 Monocytes # 0.7 Eosinophils # 0.1 Absolute Basophils 0.1 pCO2 30.0 L pO2 71.8 L HCO3 18.6 L Total CO2 19.5 Base Excess -5.5 L ABG pH 7.41 ABG O2 Sat (Measured) 94.9 Sodium 142 Plasma Sodium 142 Potassium 4.0 Chloride 109 H Carbon Dioxide 23.4 L Anion Gap 13.6 BUN 21 Creatinine 0.43 Est GFR (Non-Af Amer) 157 H BUN/Creatinine Ratio 48.8 H Random Glucose 126 H D Calcium 7.5 L Calcium Adj for Albumin 8.7 Total Bilirubin 0.2 AST 41 ALT 36 Alkaline Phosphatase 53 Troponin I 0.034 Total Protein 4.2 L Albumin 2.1 L Blood Type Antibody Screen Crossmatch - Medications Medications: Active Medications Hydrocodone Bitart/Acetaminophen ([place] 5-325) 1 each PO Q6H PRN PRN Reason: back pain Stop: 11/29/18 13:14 Last Admin: 10/31/18 22:52 Dose: 1 each Documented by: Alprazolam (Xanax) 0.5 mg PO HS PRN PRN Reason: insomnia Stop: 11/29/18 13:14 Last Admin: 10/31/18 19:42 Dose: 0.5 mg Documented by: Alprazolam (Xanax) 0.5 mg PO DAILY PRN PRN Reason: Anxiety Stop: 11/30/18 16:33 Last Admin: 11/01/18 05:06 Dose: 0.5 mg Documented by: Sodium Chloride (Sodium Chloride 0.9%) 1,000 mls @ 50 mls/hr IV .Q20H ONE Stop: 11/01/18 11:02 Last Infusion: 11/01/18 08:13 Dose: 0 mls/hr Documented by: Sodium Chloride (Sodium Chloride 0.9%) 1,000 mls @ 999 mls/hr IV .Q1H1M PRN PRN Reason: HYDRATION Stop: 11/01/18 09:08 Last Admin: 11/01/18 08:13 Dose: 999 mls/hr Documented by: Levothyroxine Sodium (Synthroid) 75 mcg PO DAILY@0700 [facility] Stop: 11/30/18 07:01 Last Admin: 11/01/18 07:35 Dose: Not Given Documented by: Ondansetron HCl (Zofran) 4 mg IV Q4H PRN PRN Reason: Nausea Stop: 11/29/18 13:11 Last Admin: 10/31/18 20:33 Dose: 4 mg Documented by: Primidone (Mysoline) 250 mg PO HS SRIDHAR Stop: 11/30/18 21:01 Last Admin: 10/31/18 20:14 Dose: 250 mg Documented by: Discontinued Medications Hydrocodone Bitart/Acetaminophen ([place] 5-325) 1 each PO DAILY PRN PRN Reason: back pain Stop: 11/29/18 13:14 Last Admin: 10/31/18 09:01 Dose: 1 each Documented by: Alprazolam (Xanax) 0.5 mg PO ONCE ONE Stop: 10/31/18 07:31 Last Admin: 10/31/18 07:46 Dose: 0.5 mg Documented by: Furosemide (Lasix) 20 mg IV ONCE ONE Stop: 10/31/18 11:01 Last Admin: 10/31/18 10:41 Dose: 20 mg Documented by: Pantoprazole Sodium (Protonix Iv Er Piggyback) 40 mg in 100 mls @ 400 mls/hr IV ONCE ONE Stop: 10/30/18 09:34 Last Infusion: 10/30/18 11:03 Dose: Infused Documented by: Sodium Chloride (Sodium Chloride 0.9%) 1,000 mls @ 999 mls/hr IV .Q1H1M ONE Stop: 10/30/18 10:24 Last Infusion: 10/30/18 11:03 Dose: Infused Documented by: Sodium Chloride (Sodium Chloride 0.9%) 1,000 mls @ 999 mls/hr IV .Q1H1M ONE Stop: 10/30/18 10:25 Last Infusion: 10/30/18 22:00 Dose: Infused Documented by: Sodium Chloride (Sodium Chloride 0.9%) 1,000 mls @ 125 mls/hr IV .Q8H ONE Stop: 10/30/18 19:35 Last Infusion: 10/31/18 02:39 Dose: Infused Documented by: Acetaminophen (Ofirmev) 1,000 mg in 100 mls @ 400 mls/hr IV ONCE ONE Stop: 10/30/18 11:51 Last Infusion: 10/30/18 12:18 Dose: Infused Documented by: Pantoprazole Sodium 40 mg/ (Sodium Chloride) 100 mls @ 400 mls/hr IV ONCE ONE Stop: 10/31/18 07:50 Last Admin: 10/31/18 10:36 Dose: 400 mls/hr Documented by: Sodium Chloride (Sodium Chloride 0.9%) 1,000 mls @ 125 mls/hr IV .Q8H ONE Stop: 10/31/18 19:59 Last Admin: 10/31/18 11:50 Dose: 125 mls/hr Documented by: Ondansetron HCl (Zofran) 4 mg IV ONCE ONE Stop: 10/30/18 09:38 Last Admin: 10/30/18 09:52 Dose: 4 mg Documented by: Potassium Chloride (Potassium Chloride 40 Meq/15ml Liquid) 40 meq PO ONCE ONE Stop: 10/31/18 12:41 Last Admin: 10/31/18 13:06 Dose: 40 meq Documented by: Primidone (Mysoline) 375 mg PO HS SRIDHAR Stop: 11/29/18 21:01 Last Admin: 10/30/18 20:34 Dose: 250 mg Documented by: - Disposition Disposition: Short Term Hospital Inpatient Condition: Stable
[2018-11-01 10:52] VITALS: BP 135/81
== END 2018-11-01 10:40 | disposition short-term general hospital (02) | DRG 378 ==
LOC: MS 09:15 → ER 09:15 → MS 11:43 → SCU 11-01 08:20
PROVIDERS: ADMIT Family Medicine; ATTEND Family Medicine
DX: K44.9 Diaphragmatic hernia without obstruction or gangrene; K31.9 Disease of stomach and duodenum, unspecified; K22.10 Ulcer of esophagus without bleeding; K25.0 Acute gastric ulcer with hemorrhage; D62 Acute posthemorrhagic anemia; E86.0 Dehydration; F41.9 Anxiety disorder, unspecified; R55 Syncope and collapse; M54.5 Low back pain; N17.9 Acute kidney failure, unspecified; G25.81 Restless legs syndrome; T39.015A Adverse effect of aspirin, initial encounter
CPT/HCPCS: 36415; 36600; 71010; 71045; 74019; 74020; 80053; 82272; 82803; 83735; 84484; 85014; 85018; 85025; 85610; 85730; 86850; 87081; 88305; 88312; 88313; 93005; 96361; 96365; 96366; 96375; 99285; G0378; J0131; J2405; P9016